=== PATIENT | female | born 1960 | race Caucasian/White ===

== ENCOUNTER 2019-08-02 08:18 | Inpatient (IN) ==
--- NOTE | 2019-07-27 08:21 | EKG Report ---
Test Performed on : 07/27/2019 08:18:01 AM Test Reason : pat Blood Pressure : / mmHG Vent. Rate : 057 BPM Atrial Rate : 057 BPM P-R Int : 148 ms QRS Dur : 086 ms QT Int : 430 ms P-R-T Axes : 021 031 030 degrees QTc Int : 418 ms Sinus bradycardia. Low voltage QRS Borderline ECG When compared with ECG of 27-NOV-2011 10:02, No significant change was found Confirmed by Dennis MONROE, Anderson Becker ([id number]) on 07/31/2019 9:25:05 AM
[2019-07-27 08:45] LABS: BASO# 0.02 X1000 (0.0-0.2); BASO% 0.3 % (0.0-0.8); EOS% 1.5 % (0.0-10.0); HEMATOCRIT 31.6 % (37.0-47.0); HEMOGLOBIN 10.2 g/dL (12.0-16.0); IMM GRAN# 0.02 X1000 (0.0-0.04); IMM GRAN% 0.3 % (0.0-0.5); LYMPH# 1.98 X1000 (1.2-3.4); LYMPH% 30.1 % (20.5-51.1); MCH 28.2 PG (27-31); MCHC 32.3 g/dL (33-37); MCV 87.3 FL (81-99); MONO# 0.39 X1000 (0.11-0.59); MONO% 5.9 % (1.7-9.3); MPV 10.3 FL (7.4-10.4); NEUT# 4.06 X1000 (1.4-6.5); NEUT% 61.9 % (42.2-75.2); PLT 204 X1000 (130-400); RBC 3.62 XMIL (4.2-5.4); RDW 14.3 % (11.5-14.5); WBC 6.57 X1000 (4.8-10.8)
[2019-07-27 08:49] LABS: INR 1.01; PROTIME 13.4 Seconds (11.0-16.0)
[2019-07-27 08:59] LABS: HEMOGLOBIN A1C 6.8 % (4.8-6.0)
[2019-07-27 09:02] LABS: CALCIUM 8.9 mg/dL (8.8-10.2); CREATININE 1.9 mg/dL (0.5-0.9); POTASSIUM 3.9 mmol/L (3.5-5.1)
[2019-07-27 18:11] LABS: URINE SOURCE CLEAN CATCH
[2019-07-27 18:17] LABS: BILIRUBIN URINE NEGATIVE (NEGATIVE); BLOOD URINE NEGATIVE (NEGATIVE); COLOR YELLOW; GLUCOSE URINE NEGATIVE (NEGATIVE); KETONE URINE NEGATIVE (NEGATIVE); LEUKOCYTES URINE NEGATIVE (NEGATIVE); NITRITE URINE NEGATIVE (NEGATIVE); PROTEIN URINE NEGATIVE (NEGATIVE); SP GRAVITY URINE 1.012; TURBIDITY URINE CLEAR (CLEAR); UROBILINOGEN URINE NORMAL (NORMAL)
[2019-07-27 18:19] LABS: UR EPITHELIAL CELLS <10 /HPF (<10); URINE BACTERIA NEGATIVE /HPF; URINE RBC <10 /HPF (<10); URINE WBC <10 /HPF (<10)
[~2019-08-02 08:18] MED LIST: DIPRIVAN 1% ONE; VERSED ONE; XYLOCAINE-MPF 2% ONE
[2019-08-02] MEDS ORDERED: LYRICA ONE (08:46)
[2019-08-02] MEDS ORDERED: COLACE ONE (08:46)
[2019-08-02] MEDS ORDERED: KEFZOL 1 GM/D5W 2 GM/100 ML IVPB ONE (08:46)
[2019-08-02] MEDS ORDERED: CELEBREX ONE (08:46)
[2019-08-02] MEDS ORDERED: REGLAN ONE (08:46)
[2019-08-02] MEDS ORDERED: PEPCID ONE (08:46)
[2019-08-02] MEDS ORDERED: LR 1,000 ML ONE (08:46)
[2019-08-02] MEDS ORDERED: TORADOL ONE (09:19)
[2019-08-02] MEDS ORDERED: DURAMORPH ONE (09:19)
[2019-08-02] MEDS ORDERED: MARCAINE 0.25% PF ONE (09:19)
[2019-08-02] MEDS ORDERED: VANCOMYCIN ONE (09:20)
[2019-08-02] MEDS ORDERED: NEOSPORIN G.U. IRRIGANT ONE (09:20)
[2019-08-02] MEDS ORDERED: EXPAREL 1.3% ONE (09:20)
[2019-08-02] MEDS ORDERED: SODIUM CHLORIDE 0.9% ONE (09:20)
[2019-08-02 09:29] LABS: URINE SOURCE VOIDED
[2019-08-02 09:38] LABS: BILIRUBIN URINE NEGATIVE (NEGATIVE); BLOOD URINE NEGATIVE (NEGATIVE); COLOR STRAW; GLUCOSE URINE NEGATIVE (NEGATIVE); KETONE URINE NEGATIVE (NEGATIVE); LEUKOCYTES URINE TRACE (NEGATIVE); NITRITE URINE NEGATIVE (NEGATIVE); PROTEIN URINE NEGATIVE (NEGATIVE); SP GRAVITY URINE 1.008; TURBIDITY URINE CLEAR (CLEAR); UROBILINOGEN URINE NORMAL (NORMAL)
[2019-08-02 09:40] LABS: UR EPITHELIAL CELLS <10 /HPF (<10); URINE BACTERIA NEGATIVE /HPF; URINE RBC <10 /HPF (<10); URINE WBC <10 /HPF (<10)
[2019-08-02] MEDS ORDERED: FENTANYL ONE (09:45)
[2019-08-02] MEDS: CYKLOKAPRON 1,000 MG/NS 2,000 MG/200 ML IVPB ONE ×2 (10:05→11:23)
[2019-08-02] MEDS ORDERED: ZOFRAN ONE (10:12)
[2019-08-02] MEDS ORDERED: DECADRON ONE (10:12)
[2019-08-02] MEDS ORDERED: OFIRMEV 1000 MG/ISOTONIC SOLN 1,000 MG/100 ML BOTTLE ONE (10:12)
[2019-08-02] MEDS ORDERED: EPHEDRINE ONE (10:12)
[2019-08-02 10:35] LABS: URINE SOURCE CATH
[2019-08-02 10:48] LABS: BILIRUBIN URINE NEGATIVE (NEGATIVE); BLOOD URINE NEGATIVE (NEGATIVE); COLOR YELLOW; GLUCOSE URINE NEGATIVE (NEGATIVE); KETONE URINE NEGATIVE (NEGATIVE); LEUKOCYTES URINE NEGATIVE (NEGATIVE); NITRITE URINE NEGATIVE (NEGATIVE); PROTEIN URINE NEGATIVE (NEGATIVE); SP GRAVITY URINE 1.009; TURBIDITY URINE CLEAR (CLEAR); UROBILINOGEN URINE NORMAL (NORMAL)
[2019-08-02 10:49] LABS: UR EPITHELIAL CELLS <10 /HPF (<10); URINE BACTERIA NEGATIVE /HPF; URINE RBC <10 /HPF (<10); URINE WBC <10 /HPF (<10)
[2019-08-02] MEDS ORDERED: DIPRIVAN 1% ONE (11:11)
[2019-08-02] MEDS ORDERED: NS 1,000 ML ONE (12:25)
--- NOTE | 2019-08-02 12:39 | Diag Imaging Result Doc PS360 ---
EXAM: KNEE 1-2 VIEWS-RIGHT 08/02/2019 HISTORY: Rt total knee TECHNIQUE: Right knee two views COMMENT: There is a total knee arthroplasty. There is no evidence of fracture or other acute bony abnormality otherwise. IMPRESSION: Postsurgical change. Electronically signed by Carl Fernandez 08/02/2019 12:37 PM
[2019-08-02] MEDS ORDERED: MILK OF MAGNESIA PO PRN (13:00)
[2019-08-02] MEDS ORDERED: OXY IR PO PRN (13:00)
[2019-08-02] MEDS ORDERED: MORPHINE IV PRN ×3 (13:00)
[2019-08-02] MEDS ORDERED: ZOFRAN PO PRN (13:00)
[2019-08-02] MEDS: NS 1,000 ML IV SCH (13:22)
[2019-08-02] MEDS ORDERED: PNEUMOVAX 23 IM ONE (13:45)
[2019-08-02] MEDS: TYLENOL PO SCH ×3 (14:40→21:02)
[2019-08-02] MEDS: OXY IR PO PRN ×2 (14:40→22:17)
[2019-08-02] MEDS: KEFZOL 2 GM/D5W 2 GM/50 ML IVPB IV SCH (17:23)
[2019-08-02] MEDS: GLUCOPHAGE PO SCH (17:23)
--- NOTE | 2019-08-02 19:35 | OPERATIVE NOTE ---
PROCEDURE DATE: 08/02/2019 PREOPERATIVE DIAGNOSIS: Degenerative osteoarthritis of the right knee. POSTOPERATIVE DIAGNOSIS: Degenerative osteoarthritis of the right knee. PROCEDURE: Right total knee arthroplasty with DePuy Attune size 5 narrow posterior stabilized femur, size 5 tibial tray, 8 mm rotating platform tibial insert, and a 35 mm medialized anatomic patella. SURGEON: Earl Irene MD. BOX BRANDER: SANJAY Jang who was necessary for proper retraction, manipulation of the extremity during the case and improved efficiency. SECOND QUALITY ENGINEER MEDICAL DEVICE: Yousif Almonte RN. ANESTHESIA: Spinal. IV FLUIDS: 1500 mL lactated Ringer's. ESTIMATED BLOOD LOSS: 30 mL. TOURNIQUET TIME: 90 minutes at 350 mmHg. COMPLICATIONS: None. INDICATION: The patient is a 59-year-old female with a chronic history of pain and discomfort in her right knee, continued pain and discomfort despite appropriate nonoperative treatment. X-rays revealed evidence of degenerative osteoarthritis and recommendation to proceed with right total knee arthroplasty was offered. Risks and benefits of surgery were explained, including the risks of anesthesia, , bleeding, infection, failure to relieve pain, postoperative stiffness, nerve injury, blood clots, and other imponderables. All questions answered. Patient and family wished to proceed with surgery. DETAILS OF OPERATION: The patient was taken to the operating room and placed supine on the operating table. Once adequate anesthesia was obtained, patient's right lower extremity was subsequently prepped and draped in usual sterile fashion. An Esmarch was used to exsanguinate the right lower extremity and the tourniquet was inflated to 350 mmHg. A standard anterior incision was made with a skin knife. Medial and lateral skin envelopes were developed. A standard medial parapatellar arthrotomy was then performed. The patella fat pad was excised. Retractor was then placed. Approximately 1 cm anterior to the PCL insertion, a starting reamer was passed. The intramedullary guide with a distal femoral cutting block was pinned in position. Distal femoral cut was then performed in standard fashion. A sizing block was placed and measured to a size 5. Corresponding pins were placed. Anterior, posterior, and chamfer cuts were then made. Attention was then turned to the proximal tibia where further resection of the ACL and PCL was performed. Using the extramedullary guide, the proximal tibial cutting block was pinned in position. It had good alignment, confirmed with the alignment ky. The proximal tibia was then resected. Medial and lateral menisci were excised. Curved osteotome was used to remove the posterior osteophytes off the distal femur. A spacer block was then placed and had good soft tissue balance seen in both flexion and extension. Attention was turned back to the proximal tibia. A size 4 tibial tray appeared to be the correct size. This was pinned in position. This was followed by a central reamer and a fin punch. A box cutting guide was placed on the distal femur and a box cut was performed. The trial femoral component was then placed and 2 lug holes were drilled. Trial trial tibial insert was then placed and had good soft tissue balance. The patella was everted and resected in a standard fashion. A size 35 appeared to be the correct size. The holes were drilled. Trial patella component was then placed. The knee was then carried through range of motion. It had good patellofemoral tracking. Trial components were then removed. Copious irrigation was then performed with antibiotic pulsatile lavage while vancomycin was mixed with cement on the back table. Sequential cementing was then performed, first with the tibial tray and excess cement was removed with a [place], followed by the femoral component and excess cement was removed with a [place], followed by trial tibial insert in full extension. Axial loading was maintained while cement cured. Attention then turned to the patella. The patella component was cemented in standard fashion. Patella clamp was placed. While cement was curing, Exparel was placed in the deep soft tissue, as well as the subcutaneous tissue. After cement had cured, peripheral cement was removed with a small osteotome. The 8 mm rotating platform tibial insert appeared to be the correct size. The trial insert was removed. Exparel was placed in the deep posterior capsule. The wound was copiously once again with pulsatile lavage. A size 8 mm rotating platform tibial insert was then placed. The knee was then carried through range of motion and had good range of motion, good soft tissue balancing, and good patellofemoral tracking. A 1/8 Hemovac drain was placed, was not sewn in. Copious irrigation was performed once again with antibiotic pulsatile lavage. Number 1 Vicryl was used to repair the arthrotomy, followed by 2-0 Vicryl to repair the subcutaneous tissue, and skin smiley. Adaptic, sterile 4 x 4, Webril, cryo unit, and Sergei wrap were applied to the right lower extremity. The patient tolerated the procedure well, no complications, transferred to the recovery room in stable condition. cc: Earl Irene MD
[2019-08-02] MEDS: PERIDEX MT SCH (21:02)
[2019-08-03] MEDS: KEFZOL 2 GM/D5W 2 GM/50 ML IVPB IV SCH (02:30)
[2019-08-03] MEDS: OXY IR PO PRN ×2 (02:35→08:57)
[2019-08-03] MEDS: TYLENOL PO SCH ×2 (03:11→08:52)
[2019-08-03] MEDS: NS 1,000 ML IV SCH (04:10)
[2019-08-03 05:57] VITALS: BP 116/51
[2019-08-03] MEDS ORDERED: XARELTO PO SCH (06:00)
[2019-08-03 06:46] LABS: HEMATOCRIT 26.4 % (37.0-47.0); HEMOGLOBIN 8.7 g/dL (12.0-16.0)
[2019-08-03 07:20] LABS: CALCIUM 7.9 mg/dL (8.8-10.2); CREATININE 2.3 mg/dL (0.5-0.9); POTASSIUM 4.9 mmol/L (3.5-5.1)
[2019-08-03] MEDS: PERIDEX MT SCH (08:52)
[2019-08-03] MEDS: GLUCOPHAGE PO SCH (08:52)
[2019-08-03] MEDS ORDERED: LASIX PO SCH (09:00)
[2019-08-03] MEDS ORDERED: ZYRTEC PO SCH (09:00)
[2019-08-03] MEDS ORDERED: ZIAC 5/6.25 MG PO SCH (09:00)
[2019-08-03] MEDS ORDERED: PRINIVIL PO SCH (09:00)
[2019-08-03] MEDS ORDERED: KLOR-CON PO SCH (09:00)
[2019-08-03] MEDS ORDERED: PROTONIX PO SCH (09:00)
[2019-08-03] MEDS ORDERED: ULORIC PO SCH (09:00)
--- NOTE | 2019-08-03 12:45 | ORTHOPAEDICS PROGRESS NOTE ---
DATE: 08/03/2019 SUBJECTIVE: Ms. Mireles is status post day 1 of a right total knee arthroplasty. She has no complaints at this time. She is resting comfortably with her at bedside. Ms. Mireles is lying in bed with no complaints at this time. Her surgical dressing has been changed this morning. Her drain has been removed. Her surgical incision is clean, dry, and intact. There is a very small amount of drainage to the mid incision that is not actively draining. It is a bloody serous drainage that appears to have been from yesterday. There is no surrounding redness at this time. She has active plantar flexion and dorsiflexion of her right foot. She is able to move all of her toes, and she is able to bend her knee though slightly. Her full sensation intact. Her hemoglobin and hematocrit did drop from 10.2 and 31.6 to 8.7 and 26.4 this morning. She is asymptomatic from this as her blood pressures remained normal, and she is not tachycardic. ASSESSMENT: Status post day 1 right total knee arthroplasty. PLAN: Ms. Mireles will be discharging today after physical therapy. She will be going home on Xarelto for DVT prophylaxis. She will be going to outpatient rehab at [facility] in [place]. She will follow up in the clinic on 08/14/2019. All of her questions were answered this morning. Dictated by SANJAY Jang for Earl Irene MD cc: Earl Irene MD
== END 2019-08-03 10:41 | disposition home or self-care (01) | DRG 470 ==
LOC: OPS 08:18 → 4N 08:18 → OBSVTOIN 10:05
PROVIDERS: ADMIT Orthopaedic Surgery Adult Reconstructive Orthopaedic Surgery; ATTEND Orthopaedic Surgery Adult Reconstructive Orthopaedic Surgery